=== PATIENT | female | born 1935 | race Two or more races ===

== ENCOUNTER 2017-06-09 15:47 | Inpatient (IN) | payer OTHER, MEDICAID ==
[~2017-06-09] VITALS: Ht 160 cm; Wt 72.6 kg
[2017-06-09] MEDS ORDERED: IPRA3AMP IH (16:11)
[2017-06-09] MEDS ORDERED: MEMA5TAB PO (16:11)
[2017-06-09] MEDS ORDERED: LOSA50TA21 PO (16:11)
[2017-06-09] MEDS ORDERED: ACET325T53 PO (16:11)
[2017-06-09] MEDS ORDERED: ATOR40TA PO (16:11)
[2017-06-09] MEDS ORDERED: IBUP-1096 PO (16:11)
[2017-06-09] MEDS ORDERED: DONE10TA11 PO (16:11)
[2017-06-09] MEDS ORDERED: DEXT50DI8 IV (16:11)
[2017-06-09] MEDS ORDERED: FURO-152 PO (16:11)
[2017-06-09] MEDS ORDERED: IPRATROPIUM BROMIDE 0.5 MG/2.5 ML NEBU NEB ONE (16:15)
[2017-06-09] MEDS ORDERED: ALBUTEROL SULFATE 2.5 MG/3 ML NEBU NEB ONE (16:15)
[2017-06-09] MEDS ORDERED: IV NORMAL SALINE 500 ML BAG IV ONE (16:15)
[2017-06-09] MEDS ORDERED: RIVA20TA PO (16:18)
[2017-06-09] MEDS ORDERED: ERGO500040 PO (16:18)
[2017-06-09] MEDS ORDERED: ENAL2.5T39 PO (16:18)
[2017-06-09] MEDS ORDERED: HYDR-552 PO (16:18)
[2017-06-09] MEDS ORDERED: ALBUTEROL SULFATE 2.5 MG/3 ML NEBU ONE (16:35)
[2017-06-09] MEDS ORDERED: IPRATROPIUM BROMIDE 0.5 MG/2.5 ML NEBU ONE (16:35)
[2017-06-09 16:44] LABS: BASOPHILS # (AUTO) 0.1 K/uL (0.0-8.0); BASOPHILS % (AUTO) 1.1 % (0.0-2.0); EOSINOPHILS # (AUTO) 0.1 K/uL (0.0-0.7); EOSINOPHILS % (AUTO) 1.3 % (0.0-7.0); HEMATOCRIT 40.8 % (31.2-41.9); HEMOGLOBIN 14.1 g/dL (10.9-14.3); LYMPHOCYTES # (AUTO) 2.8 K/uL (20.0-40.0); LYMPHOCYTES % (AUTO) 29.2 % (20.5-51.5); MEAN CORPUSCULAR HEMOGLOBIN 31.7 uug (24.7-32.8); MEAN CORPUSCULAR HGB CONC 34 g/dL (32.3-35.6); MEAN CORPUSCULAR VOLUME 92.1 fL (75.5-95.3); MONOCYTES # (AUTO) 0.9 K/uL (2.0-10.0); MONOCYTES % (AUTO) 9.3 % (0.0-11.0); NEUTROPHILS # (AUTO) 5.7 K/uL (1.8-8.9); NEUTROPHILS % (AUTO) 59.1 % (38.5-71.5); PLATELET COUNT (AUTO) 339 K/uL (179-408); RED BLOOD CELL COUNT(AUTO) 4.43 MIL/uL (3.63-4.92); WHITE BLOOD COUNT (AUTO) 9.7 K/uL (3.8-11.8)
[2017-06-09 16:53] LABS: CARBON DIOXIDE 29 mmol/L (21-32); CHLORIDE 103 mmol/L (98-107); CREATININE 0.9 mg/dL (0.6-1.3); GLUCOSE 135 mg/dL (74-106); POTASSIUM 3.7 mmol/L (3.5-5.1); UREA NITROGEN, BLOOD 17 mg/dL (7-18)
[2017-06-09 17:06] LABS: ALANINE AMINOTRANSFERASE 17 U/L (14-59); ALKALINE PHOSPHATASE 81 U/L (50-136); ASPARTATE AMINOTRANSFERASE 11 U/L (15-37); BILIRUBIN,DIRECT 0.1 mg/dL (0.0-0.2); BILIRUBIN,TOTAL 0.4 mg/dL (0.2-1.0); TOTAL PROTEIN, SERUM 5.9 g/dL (6.4-8.2)
[2017-06-09 18:04] LABS: *BILIRUBIN,URIN NEGATIVE (NEGATIVE); *BLOOD, URINE 3+ (NEGATIVE); *CLARITY,URINE SLIGHTLY CLOUDY (CLEAR); *COLOR,URINE YELLOW (YELLOW); *KETONES,URINE NEGATIVE (NEGATIVE); *PROTEIN,URINE TRACE (NEGATIVE); *UROBILINOGEN,URINE 0.2 E.U./dl (NORMAL); LEUKOCYTE ESTERASE ,URINE 3+ (NEGATIVE); NITRITE, URINE POSITIVE (NEGATIVE); UGLUCOSE NEGATIVE (NEGATIVE)
[2017-06-09 18:10] LABS: BACTERIA,URINE MANY /HPF (NONE SEEN); RBC,URINE 20-50 /HPF (0-3); SQUAMOUS EPITHELIAL CELL,UR MODERATE /HPF (NONE SEEN); WBC,URINE 20-50 /HPF (0-3)
[2017-06-09 19:00] VITALS: BP 146/79
--- NOTE | 2017-06-09 19:04 | NUR ---
pt daughter jose boudreaux called and said she is [place] of [place] now, has the power web operations lead, if ant decisions needs to be made shouls call her at [phone]
--- NOTE | 2017-06-09 20:53 | NUR ---
Pt. admitted to TELE, under care of Erin Diaz ([facility]). Belongs List completed
--- NOTE | 2017-06-09 21:30 | NUR ---
Received patient from ER via gurney. Family is at bedside. No acute distress noted. Patient is non verbal. History was given by family members. IV was re-started on the left AC # 22. Family and BRIDGE ENGINEER reports patient pulling out IV and monitor leads. Tele leads were placed on the back. Belongings list done. Skin assessment done, excoriation on the sacral area and a wound on the right FA. Kept C/D/I. Mast care provided. Safety initiated. Call light within reach, will continue to monitor. Waiting on New Orders from .
[2017-06-10] VITALS: BP 110/55
[2017-06-10] MEDS ORDERED: HYDROCODONE/APAP 5-325MG TABLET PO PRN (01:00)
[2017-06-10] MEDS ORDERED: IPRATROPIUM BROMIDE 0.5 MG/2.5 ML NEBU NEB PRN (01:00)
[2017-06-10] MEDS ORDERED: Z GUARD REMEDY PASTE 57 GM TUBE TOP PRN (01:00)
[2017-06-10] MEDS ORDERED: ZOLPIDEM 5 MG TABLET PO PRN (01:00)
[2017-06-10] MEDS ORDERED: ALBUTEROL SULFATE 2.5 MG/ 0.5 ML NEBU NEB PRN (01:00)
[2017-06-10] MEDS ORDERED: MAGNESIUM HYDROXIDE 30 ML LIQUID UDC PO PRN (01:00)
[2017-06-10] MEDS ORDERED: ENOXAPARIN SODIUM 40 MG/0.4 ML DISP.SYRIN SQ SCH ×2 (01:00→21:00)
[2017-06-10] MEDS ORDERED: ACETAMINOPHEN 325 MG TABLET PO PRN (01:00)
[2017-06-10] MEDS ORDERED: ONDANSETRON 4 MG/2 ML VIAL IV PRN (01:00)
[2017-06-10] MEDS ORDERED: ENOXAPARIN SODIUM 40 MG/0.4 ML DISP.SYRIN SQ ONE (01:48)
[2017-06-10] MEDS ORDERED: methylPREDNISolone SOD SUCC 40 MG/ML VIAL ONE ×2 (01:49→05:29)
[2017-06-10] MEDS: methylPREDNISolone SOD SUCC 40 MG/ML VIAL IV SCH ×4 (01:53→21:06)
[2017-06-10] MEDS ORDERED: CEFTRIAXONE 1 G VIAL ONE (02:10)
[2017-06-10] MEDS: CEFTRIAXONE 1 G in IV DEXTROSE 5% 50 ML IV SCH (02:20)
[2017-06-10 04:00] VITALS: BP 139/57
--- NOTE | 2017-06-10 05:59 | NUR ---
No changes t/o shift. Patient slept intermittently t/o shift. Patient goes Sinus Harish but goes back up to Sinus Rhythm. All safety and comfort measures maintained t/o shift. Mast care provided, draining well. Vital Signs stable. All meds given as ordered. All needs met.
[2017-06-10 08:46] LABS: BASOPHILS % (AUTO) 0.3 % (0.0-2.0); EOSINOPHILS % (AUTO) 0.1 % (0.0-7.0); HEMATOCRIT 38.1 % (31.2-41.9); HEMOGLOBIN 13.3 g/dL (10.9-14.3); LYMPHOCYTES # (AUTO) 1.1 K/uL (20.0-40.0); LYMPHOCYTES % (AUTO) 11.7 % (20.5-51.5); MEAN CORPUSCULAR HEMOGLOBIN 31.7 uug (24.7-32.8); MEAN CORPUSCULAR HGB CONC 35 g/dL (32.3-35.6); MEAN CORPUSCULAR VOLUME 90.8 fL (75.5-95.3); MONOCYTES # (AUTO) 0.1 K/uL (2.0-10.0); MONOCYTES % (AUTO) 1.4 % (0.0-11.0); NEUTROPHILS # (AUTO) 8.1 K/uL (1.8-8.9); NEUTROPHILS % (AUTO) 86.5 % (38.5-71.5); PLATELET COUNT (AUTO) 340 K/uL (179-408); WHITE BLOOD COUNT (AUTO) 9.4 K/uL (3.8-11.8)
[2017-06-10 08:58] LABS: CARBON DIOXIDE 25 mmol/L (21-32); CREATININE 0.7 mg/dL (0.6-1.3); GLUCOSE 187 mg/dL (74-106); MAGNESIUM 1.8 mg/dL (1.8-2.4); PHOSPHOROUS 2.7 mg/dL (2.5-4.9); POTASSIUM 3.8 mmol/L (3.5-5.1); UREA NITROGEN, BLOOD 12 mg/dL (7-18)
[2017-06-10 09:07] LABS: CHLORIDE 102 mmol/L (98-107)
[2017-06-10 11:07] VITALS: BP 128/64
[2017-06-10 15:15] VITALS: BP 142/62
[2017-06-10] MEDS ORDERED: DEXTROSE 50% 50 ML DISP.SYRIN IV PRN (16:30)
[2017-06-10] MEDS: BLOOD SUGAR DIAGNOSTIC 1 EACH STRIP VI SCH ×3 (17:04→20:35)
--- NOTE | 2017-06-10 19:30 | NUR ---
PT IN ROOM ALERT AWAKE IN NO ACUTE DISTRESS. CONTINUES TO HAVE ALTERED MENTAL STATUS AND NON VERBAL. CONTINUE TO MONITOR FOR ANY INCREASED CONFUSION. BED ALARM AND WITH 3 SIDE RAILS RAISED.
[2017-06-10 20:00] VITALS: BP 149/75
[2017-06-11] MEDS: CEFTRIAXONE 1 G in IV DEXTROSE 5% 50 ML IV SCH (01:02)
--- NOTE | 2017-06-11 02:00 | NUR ---
PT IN ROOM ASLEEP WITH NO INCREASED CONFUSION NOTED. NO REACTION TO RECENT IV ABX ROCEPHIN THERAPY. CONTINUE TO MONITOR. BED ALARM ON.
--- NOTE | 2017-06-11 05:00 | NUR ---
Pt in room in no acute distress. Continues to be confused in nonverbal manner. No agitation noted. Pt needs frequent reminders when to drink, chew, eat, and not to move. Pt is compliant most of then time when redirected. F/c intact. Continue to monitor. No s/s of hyper/hypoglycemia. 3 side rails raised.
[2017-06-11] MEDS: methylPREDNISolone SOD SUCC 40 MG/ML VIAL IV SCH ×3 (05:20→21:20)
[2017-06-11 05:59] VITALS: BP 137/64
[2017-06-11] MEDS: BLOOD SUGAR DIAGNOSTIC 1 EACH STRIP VI SCH ×4 (06:30→21:23)
[2017-06-11 07:04] LABS: BASOPHILS % (AUTO) 0.2 % (0.0-2.0); HEMATOCRIT 39.4 % (31.2-41.9); HEMOGLOBIN 13.5 g/dL (10.9-14.3); LYMPHOCYTES # (AUTO) 1.8 K/uL (20.0-40.0); MEAN CORPUSCULAR HEMOGLOBIN 31.7 uug (24.7-32.8); MEAN CORPUSCULAR HGB CONC 34 g/dL (32.3-35.6); MEAN CORPUSCULAR VOLUME 92.7 fL (75.5-95.3); MONOCYTES # (AUTO) 0.6 K/uL (2.0-10.0); MONOCYTES % (AUTO) 5.5 % (0.0-11.0); NEUTROPHILS # (AUTO) 8.2 K/uL (1.8-8.9); NEUTROPHILS % (AUTO) 77.3 % (38.5-71.5); PLATELET COUNT (AUTO) 417 K/uL (179-408); RED BLOOD CELL COUNT(AUTO) 4.26 MIL/uL (3.63-4.92); WHITE BLOOD COUNT (AUTO) 10.6 K/uL (3.8-11.8)
[2017-06-11 07:48] LABS: ALANINE AMINOTRANSFERASE 13 U/L (14-59); ALKALINE PHOSPHATASE 79 U/L (50-136); ASPARTATE AMINOTRANSFERASE 8 U/L (15-37); BILIRUBIN,TOTAL 0.3 mg/dL (0.2-1.0); CARBON DIOXIDE 25 mmol/L (21-32); CHLORIDE 104 mmol/L (98-107); CHOLESTEROL 179 mg/dL (<200); CREATININE 0.7 mg/dL (0.6-1.3); GLUCOSE 185 mg/dL (74-106); HDL CHOLESTEROL 57 mg/dL (40-60); MAGNESIUM 1.7 mg/dL (1.8-2.4); PHOSPHOROUS 3.9 mg/dL (2.5-4.9); POTASSIUM 3.7 mmol/L (3.5-5.1); TOTAL PROTEIN, SERUM 5.6 g/dL (6.4-8.2); TRIGLYCERIDES 128 MG/DL (30-150); UREA NITROGEN, BLOOD 16 mg/dL (7-18)
[2017-06-11 07:51] LABS: THYROID STIMULATING HORMONE 0.572 mIU/mL (0.358-3.740)
--- NOTE | 2017-06-11 08:00 | NUR ---
awake alert, maintains eye contact when talked to but nonverbal, looks comfortable, repositioned for comfort and readied for breakfast, head of bed elevated, aspiration precautions observed, minimal assistance by TOP CASE ASSEMBLER for breakfast, appetite fair, safety measures maintained, bed alarm on with call light within reach
[2017-06-11] MEDS: INSULIN REGULAR, HUMAN 300 UNIT/3 ML VIAL SQ PRN ×4 (09:13→21:23)
[2017-06-11] MEDS ORDERED: MAGNESIUM SULFATE/D5W 100 ML IV SCH (11:45)
[2017-06-11 11:50] VITALS: BP_SYST 126; BP_SYST 130; BP_DIAS 59; BP_DIAS 73
--- NOTE | 2017-06-11 15:29 | NUR ---
calm and cooperative, still nonverbal, looks comfortable. needs attended, call light within reach
[2017-06-11 15:53] VITALS: BP 126/61
[2017-06-11] MEDS ORDERED: ACETAMINOPHEN 325 MG TABLET PO PRN (17:15)
--- NOTE | 2017-06-11 18:24 | NUR ---
resting in bed, no distress noted, all needs attended and met, repositioned q2h with heels off loaded with pillows, appetite fair, taking po fluids well, safety measures maintained, call light within reach and bed alarm on
[2017-06-11 21:00] VITALS: BP 146/69
[2017-06-11] MEDS: DONEPEZIL 10 MG TABLET PO SCH (21:20)
[2017-06-11] MEDS: ATORVASTATIN 40 MG TABLET PO SCH (21:21)
[2017-06-11] MEDS: RIVAROXABAN 10 MG TABLET PO SCH (21:23)
[2017-06-12] MEDS: CEFTRIAXONE 1 G in IV DEXTROSE 5% 50 ML IV SCH (00:43)
[2017-06-12 04:00] VITALS: BP 139/74
[2017-06-12 05:48] VITALS: BP 139/74
[2017-06-12] MEDS: methylPREDNISolone SOD SUCC 40 MG/ML VIAL IV SCH ×3 (06:14→22:38)
[2017-06-12] MEDS: BLOOD SUGAR DIAGNOSTIC 1 EACH STRIP VI SCH ×4 (06:30→21:00)
[2017-06-12 07:11] LABS: CARBON DIOXIDE 27 mmol/L (21-32); CHLORIDE 102 mmol/L (98-107); CREATININE 0.8 mg/dL (0.6-1.3); GLUCOSE 191 mg/dL (74-106); MAGNESIUM 2.2 mg/dL (1.8-2.4); PHOSPHOROUS 3.8 mg/dL (2.5-4.9); POTASSIUM 3.9 mmol/L (3.5-5.1); UREA NITROGEN, BLOOD 27 mg/dL (7-18)
[2017-06-12 07:21] LABS: BASOPHILS % (AUTO) 0.3 % (0.0-2.0); HEMOGLOBIN 13.7 g/dL (10.9-14.3); LYMPHOCYTES # (AUTO) 1.8 K/uL (20.0-40.0); LYMPHOCYTES % (AUTO) 16.6 % (20.5-51.5); MEAN CORPUSCULAR HEMOGLOBIN 31.6 uug (24.7-32.8); MEAN CORPUSCULAR HGB CONC 34 g/dL (32.3-35.6); MONOCYTES # (AUTO) 0.7 K/uL (2.0-10.0); MONOCYTES % (AUTO) 6.3 % (0.0-11.0); NEUTROPHILS # (AUTO) 8.1 K/uL (1.8-8.9); NEUTROPHILS % (AUTO) 76.8 % (38.5-71.5); PLATELET COUNT (AUTO) 445 K/uL (179-408); RED BLOOD CELL COUNT(AUTO) 4.35 MIL/uL (3.63-4.92); WHITE BLOOD COUNT (AUTO) 10.6 K/uL (3.8-11.8)
[2017-06-12] MEDS: ENALAPRIL 2.5 MG TABLET PO SCH (08:20)
[2017-06-12] MEDS: MEMANTINE HCL 5 MG TABLET PO SCH ×2 (08:20→16:04)
[2017-06-12] MEDS: FUROSEMIDE 20 MG TABLET PO SCH (08:20)
[2017-06-12] MEDS: INSULIN REGULAR, HUMAN 300 UNIT/3 ML VIAL SQ PRN ×4 (08:23→22:27)
--- NOTE | 2017-06-12 08:25 | NUR ---
THE FOLLOW MEDICATION WAS PULL FROM THE X[facility]: LOVENOX 06/10/17 AT 0148 SOLU MEDROL 06/10/17 AT 0149 AND 9950
[2017-06-12 12:03] VITALS: BP 116/16
[2017-06-12 16:00] VITALS: BP 132/49
[2017-06-12] MEDS: RIVAROXABAN 10 MG TABLET PO SCH (16:05)
--- NOTE | 2017-06-12 17:46 | NUR ---
PT OBSERVED IN ROOM EATING DINNER ON HER OWN. PT IS NON VERBAL AND AM UNABLE TO RATE HOW ALERT AND ORIENTED SHE IS. PT HAS HAD A SWALLOWING EVALUATION TODAY. PT WILL RECEIVE THICKENER FOR FLUIDS. NEW IV STARTED ON LEFT FOREARM. PT PULLED OUT LAST IV. PT IS ON BEDREST AT THIS TIME. PT IS TURNED EVERY 2 HOURS.
[2017-06-12 19:00] VITALS: BP 136/58
--- NOTE | 2017-06-12 20:00 | NUR ---
RECEIVED PT AWAKE IS BED. SHE'S NON VERBAL AND UNABLE TO EXPRESS HER NEEDS. NO S/S OF PAIN OR DISTRESS AT PRESENT. CALL LIGHT PLACED WITHIN PT'S REACH, WILL CONTINUE TO MONITOR PT
[2017-06-12] MEDS: SULFAMETH/TRIMETH 800/160 MG TABLET PO SCH (20:32)
[2017-06-12] MEDS: ATORVASTATIN 40 MG TABLET PO SCH (20:32)
[2017-06-12] MEDS: DONEPEZIL 10 MG TABLET PO SCH (20:32)
[2017-06-13 04:00] VITALS: BP 133/68
[2017-06-13] MEDS: methylPREDNISolone SOD SUCC 40 MG/ML VIAL IV SCH ×3 (06:33→21:58)
[2017-06-13] MEDS: BLOOD SUGAR DIAGNOSTIC 1 EACH STRIP VI SCH ×4 (07:35→21:49)
[2017-06-13] MEDS: MEMANTINE HCL 5 MG TABLET PO SCH ×2 (08:17→16:01)
[2017-06-13] MEDS: SULFAMETH/TRIMETH 800/160 MG TABLET PO SCH ×2 (08:17→20:11)
[2017-06-13] MEDS: FUROSEMIDE 20 MG TABLET PO SCH (08:17)
[2017-06-13] MEDS: METFORMIN HCL 500 MG TABLET PO SCH ×2 (08:17→17:52)
[2017-06-13] MEDS: ENALAPRIL 2.5 MG TABLET PO SCH (08:18)
[2017-06-13] MEDS: INSULIN REGULAR, HUMAN 300 UNIT/3 ML VIAL SQ PRN ×4 (08:20→21:57)
[2017-06-13 11:56] VITALS: BP 109/76
[2017-06-13 15:49] VITALS: BP 108/55
[2017-06-13] MEDS: RIVAROXABAN 10 MG TABLET PO SCH (16:03)
--- NOTE | 2017-06-13 18:52 | NUR ---
PT OBSERVED RESTING IN BED PT IS NON-VERBAL. PT SHOWS NO SIGNS OF RESPIRATORY DISTRESS, NO S/S OF HYPER/HYPO GLYCEMIA. PT SHOWS NO SIGNS OF PAIN. PAIN ASSESSED BY USING FLACC. PT IS ABLE TO EAT ON HER OWN, NO LONGER AN ASPIRATION RISK, PASSED THE SWALLOW EVAL.
--- NOTE | 2017-06-13 19:30 | NUR ---
REPORT RECEIVED FROM CHRISTIAN WARREN. PT IS ALERT, NON VERBAL, NO S/S OF DISTRESS, SON AT BEDSIDE. PT WILL BE TRANSFERRED TO ACUTE REHAB. PT AND FAMILY AWARE.
[2017-06-13 20:00] VITALS: BP 120/46
[2017-06-13] MEDS: ATORVASTATIN 40 MG TABLET PO SCH (20:11)
[2017-06-13] MEDS: DONEPEZIL 10 MG TABLET PO SCH (20:11)
--- NOTE | 2017-06-13 20:30 | NUR ---
REPORT GIVEN TO CHRISTIAN MCCLELLAND FROM ARU. PT WILL BE TRANSFERRED TO BED 120. PT IS ALERT, IN NO DISTRESS. BELONGING LIST DONE. ALL 2100 SCHEDULED MEDICATIONS ADMINISTERED. ACCUCHECK AND 2200 SCHEDULED MEDICATIONS TO BE ADMINISTERED BY CHRISTIAN MCCLELLAND ARU.
--- NOTE | 2017-06-13 20:45 | NUR ---
PT TRANSFERRED TO [facility] RM 120 BY SALVAGE LABORER AND ROBYN.
--- NOTE | 2017-06-13 21:00 | NUR ---
Received patient from 2nd floor, endorsed by Aimee Patrick RN. Patient came on a gurney, accompanied by Charge Nurse Yareli and ROBYN; in a safe and stable condition. Non-verbal but follows commands. No s/s of distress. Call light placed within reach. Will continue to monitor.
[2017-06-13 21:36] VITALS: BP 114/47
--- NOTE | 2017-06-14 06:03 | NUR ---
Patient sleeping with no s/s of distress. Did not report/manifest any pain/discomfort. Slept well through the night. Call light kept within reach. Kept dry and comfortable. Needs attended. Frequent checks done. Endorsed accordingly.
--- NOTE | 2017-06-14 06:08 | NUR ---
Due meds given, V/S monitored
[2017-06-14] MEDS: methylPREDNISolone SOD SUCC 40 MG/ML VIAL IV SCH (06:15)
[2017-06-14] MEDS: BLOOD SUGAR DIAGNOSTIC 1 EACH STRIP VI SCH ×4 (06:21→21:08)
[2017-06-14 07:30] VITALS: BP 124/47
--- NOTE | 2017-06-14 07:50 | NUR ---
patient noted sitting up in bed with meal tray, no complaints of pain, no signs of distress, x2 bed rails, call light in reach, bed locked and in lowest position, bed alarm in place, all needs met at this time
[2017-06-14] MEDS: SULFAMETH/TRIMETH 800/160 MG TABLET PO SCH ×2 (08:55→21:37)
[2017-06-14] MEDS: FUROSEMIDE 20 MG TABLET PO SCH (08:56)
[2017-06-14] MEDS: METFORMIN HCL 500 MG TABLET PO SCH ×2 (08:56→17:49)
[2017-06-14] MEDS: MEMANTINE HCL 5 MG TABLET PO SCH ×2 (08:56→17:49)
[2017-06-14] MEDS: ENALAPRIL 2.5 MG TABLET PO SCH (08:56)
[2017-06-14] MEDS: INSULIN REGULAR, HUMAN 300 UNIT/3 ML VIAL SQ PRN (12:00)
[2017-06-14] MEDS: RIVAROXABAN 10 MG TABLET PO SCH (17:49)
--- NOTE | 2017-06-14 19:30 | NUR ---
Received patient sleeping, no s/s of distress. Respirations even and unlabored. Call light within reach. Will continue to monitor.
[2017-06-14 19:59] VITALS: BP 141/35
[2017-06-14] MEDS: ATORVASTATIN 40 MG TABLET PO SCH (21:09)
[2017-06-14] MEDS: DONEPEZIL 10 MG TABLET PO SCH (21:38)
--- NOTE | 2017-06-15 05:56 | NUR ---
Patient asleep with no s/s of distress. Respirations even and unlabored. No complaints of pain during the shift. Slept well through the night. Kept comfortable. Safety measures in place. Due meds given. Needs attended. Call light kept within reach. Frequent checks done. Endorsed accordingly.
[2017-06-15] MEDS: BLOOD SUGAR DIAGNOSTIC 1 EACH STRIP VI SCH ×2 (06:11→11:30)
[2017-06-15 08:09] VITALS: BP 115/65
[2017-06-15 09:00] VITALS: BP 115/65
[2017-06-15] MEDS ORDERED: predniSONE 20 MG TABLET PO SCH (09:00)
[2017-06-15] MEDS: ENALAPRIL 2.5 MG TABLET PO SCH (09:00)
[2017-06-15] MEDS: SULFAMETH/TRIMETH 800/160 MG TABLET PO SCH (09:11)
[2017-06-15] MEDS: MEMANTINE HCL 5 MG TABLET PO SCH (09:11)
[2017-06-15] MEDS: METFORMIN HCL 500 MG TABLET PO SCH (09:12)
[2017-06-15] MEDS: FUROSEMIDE 20 MG TABLET PO SCH (09:12)
[2017-06-15] MEDS ORDERED: METF500T4 PO (12:58)
[2017-06-15] MEDS ORDERED: ENAL5TAB PO (12:58)
[2017-06-15] MEDS ORDERED: PRED10TA23 PO (12:58)
[2017-06-15] MEDS ORDERED: MAGN400O6 PO (12:58)
[2017-06-15] MEDS ORDERED: SULF1TAB3 PO (12:58)
[2017-06-15] MEDS: INSULIN REGULAR, HUMAN 300 UNIT/3 ML VIAL SQ PRN (13:08)
--- NOTE | 2017-06-15 15:10 | NUR ---
At 0745 Patient is awake and alert, strictly non-verbal at the moment, not in any apparent distress and not in any pain, no facial grimacing noted. Patient is on PO antibiotic therapy, no adverse side effects at this time. Accucheck was done, she has no episode of hypoglycemia or hyperglycemia at this time. Patient is compliant with her plan of care, she has indwelling victor catheter, that is intact, patent, draining well with no sedimentation noted. At 1300, Received new orders from Dr. Gtz regarding discharging the patient back to [facility]. AT 1400, made a call to [facility] for a nursing report, spoke to Griselda Lee RN, who will receive the patient, gave her a full report regarding patients discharge and discharge instructions and she verbalized understanding. At 1430, Victor Catheter was discontinued, patient showed no signs and no symptoms of discomfort, nor urinary retention, kept comfortable, clean and dry. At 1510 Patient was discharged, on a stable condition, accompanied by [facility] transport, full report given to Xiomy ALVAREZ, she verbalized understanding, all the belongings were checked and accurately verified, were sent to the patient, son was informed regarding mother's discharge.
[2017-06-16] MEDS ORDERED: ERGOCALCIFEROL 50,000 UNIT CAPSULE PO SCH (09:00)
== END 2017-06-15 15:10 | DRG 871 ==
LOC: ER 15:47 → TELE 20:53 → MED 06-10 12:17 → MEDSURG1 06-13 20:40
PROVIDERS: ADMIT Nurse Practitioner Acute Care; ATTEND Nurse Practitioner Acute Care
DX: A41.9 Sepsis, unspecified organism (principal); G92 Toxic encephalopathy; E11.65 Type 2 diabetes mellitus with hyperglycemia; D68.59 Other primary thrombophilia; I11.0 Hypertensive heart disease with heart failure; I50.32 Chronic diastolic (congestive) heart failure; N39.0 Urinary tract infection, site not specified; I48.0 Paroxysmal atrial fibrillation; E66.9 Obesity, unspecified; Z68.28 Body mass index [BMI] 28.0-28.9, adult; B96.1 Klebsiella pneumoniae [K. pneumoniae] as the cause of diseases classified elsewhere; Z79.01 Long term (current) use of anticoagulants; F03.90 Unspecified dementia, unspecified severity, without behavioral disturbance, psychotic disturbance, mood disturbance, and anxiety; Z79.899 Other long term (current) drug therapy; Z91.81 History of falling; Z86.73 Personal history of transient ischemic attack (TIA), and cerebral infarction without residual deficits; J44.9 Chronic obstructive pulmonary disease, unspecified; M19.90 Unspecified osteoarthritis, unspecified site; M21.922 Unspecified acquired deformity of left upper arm
CPT/HCPCS: 36415; 70030-TC; 71045; 83605; 83735; 84100; 84443; 85025; 87040; 87077; 87086; 87400; 92523; 92526; 92610; 93005; 93307; 94640; A4217; A4663; J0696; J1650; J1815; J2920; J3475; J3590; J7040; J7060; J7512